=== PATIENT | male | born 1945 | race Caucasian/White ===

== ENCOUNTER 2024-05-19 08:00 | Outpatient (CLI) | payer MEDICARE ==
--- NOTE | 2024-05-20 16:40 | XRAY Report ---
PROCEDURE: Ribs w/PA Chest 3+V LT INDICATIONS: CONTUSION OF LEFT FRONT WALL OF THORAX TECHNIQUE: 2 views of the ribs were acquired, along with a single view chest. COMPARISON: None. FINDINGS: Surgical changes and devices: None. Bones and chest wall: No fractures or dislocations. No suspicious bony lesions. Overlying soft tis sues appear unremarkable. Lungs and pleura: No pleural effusions or pneumothorax. Lungs appear clear. Mediastinum: Mediastinal contours appear normal. Heart size is normal. IMPRESSION: No acute displaced rib fracture or pneumothorax. If clinical symptoms persist, consider repeat radiograph in 10-14 days versus cross-sectional imaging . Reviewed by: Alicia Perez MD on 05/20/2024 4:39 PM PDT Approved by: Alicia Perez MD on 05/20/2024 4:39 PM PDT Station ID: [id number]
== END 2024-05-19 23:59 | disposition home or self-care (01) ==
LOC: DI.S 08:00
PROVIDERS: ATTEND Physician Assistant
DX: S20.212A Contusion of left front wall of thorax, initial encounter (principal)